=== PATIENT | female | born 1940 | race Caucasian/White ===

== ENCOUNTER → 2023-08-23 10:00 | Outpatient (REF) | payer OTHER, SELFPAY | LOC: HWRCS 10:00 | PROVIDERS: ATTENDING PHYSICIAN Internal Medicine Cardiovascular Disease; FAMILY PHYSICIAN Family Medicine | DX: R01.1 Cardiac murmur, unspecified (principal) | CPT/HCPCS: 93306 ==

== ENCOUNTER → 2023-12-21 12:43 | Outpatient (REF) | payer OTHER, SELFPAY | LOC: HWRAD 12:43 | PROVIDERS: ATTENDING PHYSICIAN Internal Medicine Nephrology; FAMILY PHYSICIAN Internal Medicine Geriatric Medicine | DX: R10.9 Unspecified abdominal pain (principal) | CPT/HCPCS: 76770 ==

== ENCOUNTER → 2024-02-24 08:23 | Outpatient (REF) | payer OTHER, SELFPAY | LOC: DHSLP 08:23 | PROVIDERS: ATTENDING PHYSICIAN Internal Medicine; FAMILY PHYSICIAN Family Medicine | DX: G47.33 Obstructive sleep apnea (adult) (pediatric) (principal); G47.61 Periodic limb movement disorder; G47.00 Insomnia, unspecified; G47.52 REM sleep behavior disorder | CPT/HCPCS: 95811 ==

== ENCOUNTER → 2024-03-22 13:26 | Outpatient (REF) | payer OTHER, SELFPAY | LOC: HWRAD 13:26 | PROVIDERS: ATTENDING PHYSICIAN Physician Assistant; FAMILY PHYSICIAN Nurse Practitioner Primary Care; REFERRING PHYSICIAN Orthopaedic Surgery Hand Surgery | DX: M25.411 Effusion, right shoulder (principal); M25.539 Pain in unspecified wrist; M79.643 Pain in unspecified hand | CPT/HCPCS: 73030; 73110; 73130 ==

== ENCOUNTER → 2024-05-11 10:47 | Outpatient (REF) | payer OTHER, SELFPAY | LOC: HWRAD 10:47 | PROVIDERS: ATTENDING PHYSICIAN Nurse Practitioner Primary Care | DX: J10.1 Influenza due to other identified influenza virus with other respiratory manifestations (principal); J40 Bronchitis, not specified as acute or chronic; J44.1 Chronic obstructive pulmonary disease with (acute) exacerbation | CPT/HCPCS: 71046 ==

== ENCOUNTER 2024-11-19 06:50 | Day surgery (SDC) | payer OTHER, SELFPAY ==
[2024-11-09 10:52] VITALS: BMI 20.2
[2024-11-09 12:24] LABS: Hematocrit 33.4 % (37.0-47.0); Hemoglobin 11.0 g/dL (12.0-16.0); Mean Corp Hgb Conc. 32.9 g/dL (33.0-37.0); Mean Corpuscular Volume 87.4 fL (81.0-99.0); Platelet Count 171 10^3/uL (130-400); Red Cell Dist. Width 15.3 % (11.5-14.5)
[2024-11-09 12:33] LABS: Blood Urea Nitrogen 37 mg/dl (7-17); Calcium 9.0 mg/dl (8.4-10.2); Carbon Dioxide 27 mmol/L (22-30); Chloride 109 mmol/L (98-107); Estimated Creatinine Clearance 20 ml/min; Glucose 81 mg/dl (70-99); Potassium 4.3 mmol/L (3.5-5.1); Sodium 141 mmol/L (135-145); eGFR 37.10
[2024-11-19] VITALS (11 sets, daily range): BP systolic 94–131; BP diastolic 42–78; BMI 20.2
[2024-11-19] MEDS: NORMOSOL-R/PLASMALYTE-A 1000 IV (11:29)
== END 2024-11-19 17:16 | disposition home or self-care (01) ==
LOC: SDS 06:50
PROVIDERS: ATTENDING PHYSICIAN Obstetrics & Gynecology; FAMILY PHYSICIAN Nurse Practitioner Primary Care
DX: N99.3 Prolapse of vaginal vault after hysterectomy (principal); Y83.8 Other surgical procedures as the cause of abnormal reaction of the patient, or of later complication, without mention of misadventure at the time of the procedure; N39.3 Stress incontinence (female) (male); N95.8 Other specified menopausal and perimenopausal disorders; N36.41 Hypermobility of urethra
CPT/HCPCS: 57288; 57120; 57250; 36415; 80048; 85027; 86850; 86900; 86901; C1771